=== PATIENT | female | born 2000 | race Caucasian/White ===

== ENCOUNTER 2020-11-06 17:16 | Observation (INO) | payer OTHER ==
[2020-11-06 17:52] LABS: Appearance SLIGHTLY CLOUDY (CLEAR); Bacteria RARE /HPF (NEGATIVE); Bilirubin NEGATIVE (NEGATIVE); Blood NEGATIVE Ery/ul (0-5); Epithelial Cells FEW /HPF (FEW); Glucose NEGATIVE (NEGATIVE); Ketones NEGATIVE (NEGATIVE); Leukocyte Esterase MODERATE (NEGATIVE); Mucus SLIGHT /HPF (NEGATIVE); Nitrite NEGATIVE (NEGATIVE); Protein,Urine Dip NEGATIVE (Negative); Specific Gravity 1.006 (1.005-1.025); Urobilinogen NEGATIVE mg/dL (0-1)
[2020-11-06 17:55] LABS: Amphetamine,Urine NEGATIVE (NEGATIVE); Barbiturate,Urine NEGATIVE (NEGATIVE); Benzodiazepine,Urine NEGATIVE (NEGATIVE); Cocaine,Urine NEGATIVE (NEGATIVE); Methadone,Urine NEGATIVE (NEGATIVE); Opiate,Urine NEGATIVE (NEGATIVE); PCP,Urine NEGATIVE (NEGATIVE); THC,Urine NEGATIVE (NEGATIVE)
[2020-11-06 19:34] VITALS: BP 97/55; PULSE 75
== END 2020-11-06 19:10 | disposition home or self-care (01) ==
LOC: OB 17:16
PROVIDERS: ADMIT Obstetrics & Gynecology; ATTEND Obstetrics & Gynecology
DX: O23.43 Unspecified infection of urinary tract in pregnancy, third trimester (principal); O99.213 Obesity complicating pregnancy, third trimester; E66.01 Morbid (severe) obesity due to excess calories; Z3A.36 36 weeks gestation of pregnancy
CPT/HCPCS: 80307; 81001

== ENCOUNTER 2020-11-14 15:30 | Observation (INO) | payer OTHER ==
[2020-11-14 17:08] LABS: Appearance CLOUDY (CLEAR); Bacteria RARE /HPF (NEGATIVE); Bilirubin NEGATIVE (NEGATIVE); Blood NEGATIVE Ery/ul (0-5); Epithelial Cells MODERATE /HPF (FEW); Glucose NEGATIVE (NEGATIVE); Ketones NEGATIVE (NEGATIVE); Leukocyte Esterase MODERATE (NEGATIVE); Mucus SLIGHT /HPF (NEGATIVE); Nitrite NEGATIVE (NEGATIVE); Protein,Urine Dip NEGATIVE (Negative); Specific Gravity 1.014 (1.005-1.025); Urobilinogen NEGATIVE mg/dL (0-1)
[2020-11-14 17:11] LABS: Amphetamine,Urine NEGATIVE (NEGATIVE); Barbiturate,Urine NEGATIVE (NEGATIVE); Benzodiazepine,Urine NEGATIVE (NEGATIVE); Cocaine,Urine NEGATIVE (NEGATIVE); Methadone,Urine NEGATIVE (NEGATIVE); Opiate,Urine NEGATIVE (NEGATIVE); PCP,Urine NEGATIVE (NEGATIVE); THC,Urine NEGATIVE (NEGATIVE)
[2020-11-14] MEDS ORDERED: Sodium Chloride 0.9% 1000 ML 1,000 ML IV STA (18:27)
[2020-11-14 18:56] LABS: Absolute Neutrophil Ct (ANC) 9.71 (1.4-6.9); BASOPHIL % 0.2 % (0.0-0.4); Basophil (Absolute #) 0.03 (0-0.4); Eosinophil % 0.2 % (0.00-5.0); Eosinophil (Absolute #) 0.03 (0-0.5); Hematocrit 27.6 % (35-47); Hemoglobin 8.3 gm/dl (12.0-16.0); Lymphocyte (Absolute #) 2.04 (1.0-4.6); Lymphocytes % 16.7 % (24.0-44.0); Mean Cell Volume 78.2 fl (78-100); Mean Corpuscular Hemoglobin 23.5 pg (26-32); Mean Corpuscular Hgb Concent. 30.1 g/dl (32-36); Mean Platelet Volume 9.3 fl (7.5-11.0); Monocyte (Absolute #) 0.42 (0.0-1.3); Monocytes % 3.4 % (0.0-12.0); Neutrophil % 79.5 % (36.0-66.0); Platelet Count 266 K/mm3 (150-450); Red Blood Count 3.53 M/mm3 (4.1-5.4); White Blood Count 12.2 K/mm3 (4.0-10.5)
[2020-11-14] MEDS: TYLENOL 325 MG PO PRN (18:59)
[2020-11-14 19:10] LABS: ALBUMIN 3.3 g/dL (3.5-5.0); ALKALINE PHOSPHATASE 99 U/L (38-126); ANION GAP 11.4 MEQ/L (5-15); BLOOD UREA NITROGEN 8 mg/dL (7-17); CHLORIDE 107 mmol/L (98-107); Carbon Dioxide 20 mmol/L (22-30); Creatinine 1 0.54 mg/dL (0.52-1.04); EST GLOMERULAR FILTRATION RATE > 60.0 ML/MIN; Glucose 99 mg/dL (74-106); Potassium 3.5 mmol/L (3.5-5.1); SGOT/AST 12 U/L (14-36); SGPT/ALT 8 U/L (0-35); SODIUM 135 mmol/L (137-145)
[2020-11-15] MEDS ORDERED: Zofran 4 MG/2 ML VIAL IV PRN (07:44)
--- NOTE | 2020-11-15 09:01 | XRAY ---
Indication: well-being. Poor care. Two-dimensional OB ultrasound performed. Comparison: None There is a single viable intrauterine in cephalic presentation. Normal four-chamber heart with heart rate 120 BPM. Normal three-vessel cord. Cord insertion, spine, and kidneys not well visualized. Visualized stomach and bladder are unremarkable. Anterior fundal placenta without abruption/previa. BPD measures 8.79 cm corresponding to 35 weeks 4 days. HC measures 32.69 cm corresponding to 37 weeks 1 day. AC measures 33.55 cm corresponding to 37 weeks 3 days. FL measures 7.16 cm corresponding to 36 weeks 5 days. Estimated weight 6 lbs. 13 oz., +/-1 lb. 0 oz. Approximately 41 percentile. MENA is 6.5 cm. Impression: Single viable intrauterine with mean gestational age 36 weeks 5 days. Expected date confinement is December 08, 2020.
[2020-11-15] MEDS: Pepcid 20 MG PO SCH ×2 (09:30→22:47)
[2020-11-15] MEDS: Lactated Ringers 1,000 ML IV SCH ×2 (09:30→18:02)
[2020-11-15] MEDS: TYLENOL 325 MG PO PRN (22:47)
[2020-11-16] MEDS: Lactated Ringers 1,000 ML IV SCH (05:30)
[2020-11-16 06:32] VITALS: PULSE 83; O2SAT 98
--- NOTE | 2020-11-16 09:08 | XRAY ---
Indication: Oligohydramnios. Limited OB ultrasound performed to evaluate MENA. There is a single viable intrauterine with heart rate 130 BPM. Four-quadrant MENA is 7.1 cm. This was previously 6.5 cm one day earlier.
[2020-11-16] MEDS: Pepcid 20 MG PO SCH (10:26)
[2020-11-16 12:24] VITALS: BP 123/65
== END 2020-11-16 11:40 | disposition home or self-care (01) ==
LOC: UNDOADMOB 15:30 → OB 15:30
PROVIDERS: ADMIT Family Medicine; ATTEND Family Medicine
DX: Z34.83 Encounter for supervision of other normal pregnancy, third trimester (principal); Z3A.37 37 weeks gestation of pregnancy; D64.9 Anemia, unspecified; F19.11 Other psychoactive substance abuse, in remission
CPT/HCPCS: 36415; 76805; 76815; 80053; 80307; 81001; 84112; 85025; G0378; A9270-GY